=== PATIENT | female | born 1995 | race Caucasian/White ===

== ENCOUNTER 2018-01-18 10:29 | Emergency (ER) | payer OTHER ==
--- NOTE | 2018-01-18 10:34 | PDOC ---
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 No fevers or chills No neck pain No focal weakness or numbness PMH: denies PSH: denies Meds: denies ALL: NKDA Social: denies alcohol drug cigarettes GENERAL/CONSTITUTIONAL: No: fever, chills, weakness, loss of appetite. HEAD, EYES, EARS, NOSE AND THROAT: No: change in vision, ear pain, discharge, sore throat, throat swelling. CARDIOVASCULAR: No: chest pain, lightheadedness, palpitations, syncope RESPIRATORY: No: cough, shortness of breath, wheezing, hemoptysis, stridor. GASTROINTESTINAL: No: nausea, vomiting, diarrhea, abdominal pain GENITOURINARY: No: dysuria, hematuria, frequency, urgency, flank pain. MUSCULOSKELETAL: No: back pain, neck pain, joint pain, muscle swelling or pain SKIN AND BREASTS: No: lesions, pallor, rash or easy bruising. NEUROLOGIC: Yes:headache No: vertigo, paresthesias, weakness ENDOCRINE: No: unexplained weight gain or loss HEMATOLOGIC/LYMPHATIC: No: anemia, easy bleeding, swelling nodes. GENERAL: The patient is in no acute distress. HEAD: Normal with no signs of trauma. EYES: PERRLA, EOMI, pupils 4mms to 2 mm, no periobital bruising, no bruising over the mastoid ENT: Ears normal, nares patent, oropharynx clear without exudates. Moist mucous membranes. No hemotympanum NECK: Normal range of motion, supple without lymphadenopathy, JVD, or masses. LUNGS: Breath sounds equal, clear to auscultation bilaterally. No wheezes, and no crackles. HEART:Regular rate and rhythm, normal S1 and S2 without murmur, rub or gallop. ABDOMEN: Soft, nontender EXTREMITIES: Normal range of motion NEUROLOGICAL: Cranial nerves II through XII grossly intact. Normal speech. No focal neurological deficits. MUSCULOSKELETAL: Back non-tender to palpation SKIN: Warm, Dry, normal turgor, no rashes or lesions noted. 01/18/18 10:53 Past History - Past Medical History Allergies/Adverse Reactions: Allergies Allergy/AdvReac Type Severity Reaction Status Date / Time No Known Allergies Allergy Unverified 01/18/18 10:32 Home Medications: Ambulatory Orders Ibuprofen [Motrin -] 600 mg PO TID PRN #21 tablet 01/18/18 Metoclopramide HCl [Reglan -] 10 mg PO BID #10 tablet 01/18/18 Medical Decision Making - Medical Decision Making 01/18/18 10:58 Aide is a 22 yo F who presents to the ER with a complaint of headache s/p head trauma Pt states she fell 3 days ago Pt took tylenol today Based on CT in Head Injury patients prediction rule - pt is <40, GCS 15, no deterioration of GCS, no skull injury, no post traumatic amnesia, not ejected from vehicle or struck by vehicle, no anticoagulants, no fall from elevation, no persistent anterograde amnesia, no neurologic deficit, ? LOC)_ CT not indicated She is not interested in doing a CT Pt is concerned because she has an important test to take tomorrow Will do Motrin, Reglan Will re assess Pain score now 05/2301/18/18 11:47 HEadache gone Pt still has head heaviness Will discharge on Reglan and MOtrin Clinical impression: post traumatic headache, initial presentation *DC/Admit/Observation/Transfer Diagnosis at time of Disposition: Headache Qualifiers: Headache type: unspecified Headache chronicity pattern: acute headache Intractability: not intractable Qualified Code(s): R51 - Headache - Discharge Dispostion Disposition: HOME Condition at time of disposition: Stable Admit: No - Prescriptions Prescriptions: Ibuprofen [Motrin -] 600 mg PO TID PRN #21 tablet PRN Reason: Pain Metoclopramide HCl [Reglan -] 10 mg PO BID #10 tablet - Referrals Referrals: Isauro Villarreal MD [Staff Physician] - - Patient Instructions Printed Discharge Instructions: DI for Concussion, DI for Post-traumatic Headache Additional Instructions: Ms Saez Chief coming to the emergency Department today. Please take medications as prescribed. Please return to the emergency department for any other concerns or complaints - Post Discharge Activity
[2018-01-18 10:47] VITALS: BP 121/85; PULSE 67; TEMP 98.2; BMI 19.9
[2018-01-18] MEDS ORDERED: IBUPROFEN 600 MG TABLET (FP) PO ONE ×2 (10:52→10:55)
[2018-01-18] MEDS ORDERED: METOCLOPRAMIDE HCL 10 MG TABLET (FP) PO ONE ×2 (10:52→10:55)
== END 2018-01-18 11:54 | disposition home or self-care (01) ==
LOC: FER 10:29
DX: R51 Headache (principal); W18.39XA Other fall on same level, initial encounter; Y93.66 Activity, soccer; Y92.9 Unspecified place or not applicable
CPT/HCPCS: 99281-25

== ENCOUNTER 2018-11-14 10:39 | Emergency (ER) | payer OTHER ==
[2018-11-14 11:01] VITALS: BP 96/50; PULSE 72; TEMP 98.2; BMI 20.2
[2018-11-14 11:15] LABS: URINE APPEARANCE Clear; URINE BILIRUBIN Negative (NEGATIVE); URINE COLOR Yellow; URINE GLUCOSE (UA) Negative (NEGATIVE); URINE KETONE Negative (NEGATIVE); URINE LEUK ESTERASE 1+ (NEGATIVE); URINE NITRITE Negative (NEGATIVE); URINE PROTEIN Negative (NEGATIVE); URINE UROBILINOGEN 0.2 (0.2-1.0)
[2018-11-14 11:34] LABS: AMORP URATES NONE SEEN /hpf (NONE SEEN); EPI CELLS 2+ /HPF; URINE BACTERIA 1+ /hpf (NEGATIVE)
--- NOTE | 2018-11-14 11:39 | PDOC ---
History of Present Illness - General Chief Complaint: Urinary Problem Stated Complaint: UTI Time Seen by Provider: 11/14/18 10:40 History Source: Patient Exam Limitations: No Limitations - History of Present Illness Initial Comments: 11/14/18 11:36 CHIEF COMPLAINT: Dysuria and burning since last night HISTORY OF PRESENT ILLNESS: 23-year-old female presents complaining of discomfort on urination since last night. She states she has one sexual partner for the last 2 years. They had sexual intercourse last night and she has some burning and vaginal discomfort at that time. She had dysuria afterwards and continues to have dysuria today. There is no urgency or frequency. The dysuria is less intense today. There is no vaginal discharge. There is no history of STI. Patient is not taking control currently. She is not using condoms. Her last normal menstrual period was the last week in September. Her usual cycle length is 6 weeks so she is due next week. REVIEW OF SYSTEMS: GENERAL/CONSTITUTIONAL: No fever or chills. No weakness. No weight change. HEAD, EYES, EARS, NOSE AND THROAT: No change in vision. No ear pain or discharge. No sore throat. CARDIOVASCULAR: No chest pain or shortness of breath. RESPIRATORY: No cough, wheezing, or hemoptysis. GASTROINTESTINAL: No nausea, vomiting, diarrhea or constipation. No rectal bleeding. GENITOURINARY: Positive dysuria. No frequency. No hematuria. No urgency. No abnormal vaginal discharge. No white or yellow discharge. MUSCULOSKELETAL: No joint or muscle swelling or pain. No neck or back pain. SKIN AND BREASTS: No rash or easy bruising. NEUROLOGIC: No headache, vertigo, loss of consciousness, or loss of sensation. PSYCHIATRIC: No depression or anxiety. ENDOCRINE: No increased thirst. No abnormal weight change. HEMATOLOGIC/LYMPHATIC: No anemia, easy bleeding, or history of blood clots. ALLERGIC/IMMUNOLOGIC: No hives or skin allergy. No latex allergy. Past History - Past Medical History Allergies/Adverse Reactions: Allergies Allergy/AdvReac Type Severity Reaction Status Date / Time No Known Allergies Allergy Verified 11/14/18 10:40 Home Medications: Ambulatory Orders Cephalexin [Keflex] 500 mg PO BID #6 capsule 11/14/18 Asthma: No COPD: No Diabetes: No - Suicide/Smoking/Psychosocial Hx Smoking History: Never smoked Have you smoked in the past 12 months: No Hx Alcohol Use: Yes (RARE) Drug/Substance Use Hx: No Substance Use Type: None *Physical Exam - Vital Signs Last Vital Signs Temp Pulse Resp BP Pulse Ox 98.2 F 72 16 96/50 L 99 11/14/18 10:39 11/14/18 10:39 11/14/18 10:39 11/14/18 10:39 11/14/18 10:39 - Physical Exam Comments: 11/14/18 11:38 GENERAL: [The patient is awake, alert, and fully oriented, in no acute distress. ] HEAD: [Normal with no signs of trauma.] EYES: [Pupils equal, round and reactive to light, extraocular movements intact, sclera anicteric, conjunctiva clear.] ENT: [Ears normal, nares patent, oropharynx clear without exudates. Moist mucous membranes.] NECK: [Normal range of motion, supple without lymphadenopathy, JVD, or masses.] LUNGS: [Breath sounds equal, clear to auscultation bilaterally. No wheezes, and no crackles.] HEART: [Regular rate and rhythm, normal S1 and S2 without murmur, rub or gallop. ] ABDOMEN: [Soft, nontender, normoactive bowel sounds. No suprapubic masses or tenderness. No guarding, no rebound. No masses.] BACK: No CVA tenderness. EXTREMITIES: [Normal range of motion, no edema. No clubbing or cyanosis. No cords, erythema, or tenderness.] NEUROLOGICAL: [Cranial nerves II through XII grossly intact. Normal speech, normal gait.] PSYCH: [Normal mood, normal affect.] SKIN: [Warm, Dry, normal turgor, no rashes or lesions noted.] Moderate Sedation - Procedure Monitoring Vital Signs: Procedure Monitoring Vital Signs Temperature 98.2 F 11/14/18 10:39 Pulse Rate 72 11/14/18 10:39 Respiratory Rate 16 11/14/18 10:39 Blood Pressure 96/50 L 11/14/18 10:39 O2 Sat by Pulse Oximetry (%) 99 11/14/18 10:39 ED Treatment Course - ADDITIONAL ORDERS Additional order review: Laboratory Results 11/14/18 10:40 Urine Color Yellow Urine Appearance Clear Urine pH 6.0 Ur Specific [place] >= 1.030 Urine Protein Negative Urine Glucose (UA) Negative Urine Ketones Negative Urine Blood Trace-intact H Urine Nitrite Negative Urine Bilirubin Negative Urine Urobilinogen 0.2 Ur Leukocyte Esterase 1+ H Urine RBC 2-5 Urine WBC 2-5 Ur Epithelial Cells 2+ Amorphous Urates None seen Urine Bacteria 1+ Medical Decision Making - Medical Decision Making 11/14/18 11:58 23-year-old, young healthy female presents complaining of dysuria after sexual relations. Her symptoms are highly suggestive of UTI. She has no symptoms to suggest vaginitis. She is monogamous for a long period of time with one partner and no history of STI's. Urinalysis is suggestive of a mild urinary tract infection. No signs of pyelonephritis. Patient will be treated with Keflex 500 mg twice a day for 3 days. Urine culture was sent and pending. Urine for GC and chlamydia was also sent and is pending. Patient advised to follow-up with her primary care physician or oyster buyer. She will be notified through our follow-up system if her STI screen is positive. *DC/Admit/Observation/Transfer Diagnosis at time of Disposition: Cystitis - Discharge Dispostion Disposition: HOME Condition at time of disposition: Good Decision to Admit order: No - Prescriptions Prescriptions: Cephalexin [Keflex] 500 mg PO BID #6 capsule - Referrals Schedule a call back: STI urine screen - Patient Instructions Printed Discharge Instructions: DI for Urinary Tract Infection (UTI) Additional Instructions: Today you were evaluated for burning on urination. The urine testing shows that you are not . The urine testing further shows that you have a urinary tract infection, uncomplicated. You're advised to drink plenty of fluids to help resolve the infection. Take Keflex antibiotic 500 mg 2 times a day for 3 days. Your STI screening test is pending at the time of discharge. You will be contacted if the test comes back positive. Follow-up with your primary care physician or your oyster buyer. Return to the emergency department for any severe or progressive symptoms. - Post Discharge Activity
[2018-11-14] MEDS ORDERED: CEPHALEXIN MONOHYDRATE 500 MG CAPSULE (UD) PO ONE (11:52)
[2018-11-14] MEDS ORDERED: CEPHALEXIN MONOHYDRATE 500 MG CAPSULE (UD) ONE (11:54)
== END 2018-11-14 12:05 | disposition home or self-care (01) ==
LOC: FER 10:39
DX: N30.90 Cystitis, unspecified without hematuria (principal)
CPT/HCPCS: 36415; 81003; 81015; 84703; 87086; 87491; 87591; 99282-25

== ENCOUNTER 2022-01-06 01:32 | Inpatient (IN) | payer OTHER ==
[~2022-01-06 01:32] MED LIST: ELECTROLYTE-148 SOLN 500 ML IV SCH
[2022-01-06] MEDS ORDERED: LABETALOL HCL 200 MG TABLET (FP) PO ONE ×2 (02:40→20:00)
[2022-01-06] MEDS ORDERED: BUTORPHANOL TARTRATE 2 MG/ML VIAL IVPB ONE (02:40)
[2022-01-06] MEDS ORDERED: PROMETHAZINE HCL 25 MG/1 ML VIAL IVPB ONE (02:40)
[2022-01-06] MEDS ORDERED: LABETALOL HCL 200 MG TABLET (FP) ONE ×2 (02:43→19:47)
[2022-01-06 03:06] LABS: BASO % 0.3 % (0-2.0); EOS % 0.6 % (0-4.5); HEMATOCRIT 32.9 % (32.4-45.2); HEMOGLOBIN 11.4 GM/dL (10.7-15.3); LYMPH % 24.9 % (8-40); MCH 32.1 pg (25.7-33.7); MCHC 34.6 g/dl (32.0-36.0); MEAN PLT VOLUME 10.8 fl (7.5-11.1); MONO % 7.7 % (3.8-10.2); NEUT % 66.5 % (42.8-82.8); PLATELET COUNT 187 10^3/uL (134-434); RBC 3.54 M/mm3 (3.60-5.2); RDW 13.4 % (11.6-15.6); WHITE BLOOD COUNT 7.4 K/mm3 (4.0-10.0)
[2022-01-06] MEDS ORDERED: PROMETHAZINE HCL 25 MG/1 ML VIAL ONE (03:10)
[2022-01-06] MEDS ORDERED: BUTORPHANOL TARTRATE 2 MG/ML VIAL ONE (03:10)
[2022-01-06 03:15] LABS: INR 0.84 (0.83-1.09); PROTHROMBIN TIME (PATIENT) 9.7 SEC (9.7-13.0)
[2022-01-06 03:18] LABS: ACTIVATED PTT 27.1 SECONDS (25.2-36.5)
[2022-01-06 03:26] LABS: CALCIUM 8.7 mg/dL (8.5-10.1)
[2022-01-06] MEDS ORDERED: ELECTROLYTE-148 SOLN 500 ML IV SCH (03:26)
[2022-01-06 03:27] LABS: BLOOD UREA NITROGEN 13.3 mg/dL (7-18)
[2022-01-06 03:30] LABS: CREATININE 0.6 mg/dL (0.55-1.3)
[2022-01-06 04:28] VITALS: BMI 27.5
[2022-01-06] MEDS ORDERED: BUTORPHANOL TARTRATE 1 MG/ML VIAL IVPB PRN (06:20)
[2022-01-06] MEDS ORDERED: PROMETHAZINE HCL 25 MG/1 ML VIAL IVPUSH ONE (06:20)
[2022-01-06] MEDS: ELECTROLYTE-148 SOLN 1,000 ML IV SCH (06:30)
[2022-01-06] MEDS ORDERED: FENTANYL/BUPIVACAINE/NS/PF - PCEA - 50 ML DISP.SYRIN EP ONE ×5 (07:20→22:20)
[2022-01-06] MEDS ORDERED: NALOXONE HCL 0.4 MG/ML VIAL IVPUSH PRN (07:22)
[2022-01-06] MEDS ORDERED: BUPIVACAINE HCL/PF 0.25% (2.5MG/ML) 10 ML VIAL ONE ×4 (07:23→23:34)
[2022-01-06] MEDS: FENTANYL/BUPIVACAINE/NS/PF - PCEA - 50 ML DISP.SYRIN EP SCH ×3 (07:40→16:00)
[2022-01-06 07:41] LABS: POC NITRAZINE POS
[2022-01-06] MEDS: OXYTOCIN 30 UNITS in 0.9% NS 30 UNIT/500 ML INFUS.BAG IVPB SCH (08:45)
[2022-01-06] MEDS ORDERED: OXYTOCIN 30 UNITS in 0.9% NS 30 UNIT/500 ML INFUS.BAG IVPB ONE (08:45)
[2022-01-06] MEDS ORDERED: NIFEdipine 10 MG CAPSULE (FP) PO ONE (21:10)
[2022-01-06] MEDS ORDERED: MAGNESIUM 4GM/H20 - 100 ML IVPB SCH (21:15)
[2022-01-06] MEDS ORDERED: MAGNESIUM SULFATE 20GM/500ML - 500 ML IVPB SCH (21:15)
[2022-01-06 21:50] LABS: RETICULOCYTES 2.42 % (0.5-1.5)
[2022-01-07] MEDS ORDERED: FENTANYL/BUPIVACAINE/NS/PF - PCEA - 50 ML DISP.SYRIN EP ONE ×2 (00:47→03:42)
[2022-01-07] MEDS ORDERED: BUPIVACAINE HCL/PF 0.25% (2.5MG/ML) 10 ML VIAL ONE (01:16)
[2022-01-07] MEDS ORDERED: AMPICILLIN - 2 GM in SODIUM CHLORIDE 100 ML IVPB ONE (03:00)
[2022-01-07] MEDS ORDERED: AMPICILLIN SODIUM 2 GM VIAL ONE (03:04)
[2022-01-07] MEDS ORDERED: ONDANSETRON 4 MG/2 ML VIAL IVPUSH PRN (05:28)
[2022-01-07] MEDS ORDERED: WITCH HAZEL 50% (TUCKS) 40 PAD/JAR PAD TP PRN (05:34)
[2022-01-07] MEDS ORDERED: BENZOCAINE 20% 57 GM BOTTLE TP PRN (05:34)
[2022-01-07] MEDS ORDERED: BENZOCAINE 28 GM HEMORRHOIDAL OINTMENT TP PRN (05:34)
[2022-01-07] MEDS ORDERED: METHYLERGONOVINE MALEATE 0.2 MG/1 ML AMP IM PRN (05:34)
[2022-01-07 07:04] LABS: CORD BASE EXCESS -3.3 mmol/L (0-2); CORD HCO3 22.7 mmHg (20-29); CORD PCO2 44.6 mmHg (30-78); CORD pH 7.325 (7.14-7.44)
[2022-01-07 07:07] LABS: CORD BASE EXCESS -6.7 mmol/L (0-2); CORD HCO3 18.5 mmHg (20-29); CORD PCO2 35.9 mmHg (30-78); CORD pH 7.329 (7.14-7.44)
[2022-01-07] MEDS ORDERED: IBUPROFEN 800 MG/8 ML IJ IVPB ONE (07:29)
[2022-01-07] MEDS: OXYTOCIN 20 UNITS in 0.9% NS 20 UNIT/1,000 ML INFUS.BAG IV SCH ×2 (07:30→23:07)
[2022-01-07] MEDS ORDERED: OXYTOCIN 20 UNITS in 0.9% NS 20 UNIT/1,000 ML INFUS.BAG IV ONE (07:33)
[2022-01-07] MEDS: IBUPROFEN 800 MG/8 ML IJ IVPB PRN ×3 (07:40→23:07)
[2022-01-07] MEDS: AMPICILLIN - 1 GM in SODIUM CHLORIDE 100 ML IVPB SCH ×2 (08:08→19:32)
[2022-01-07] MEDS: OXYTOCIN 30 UNITS in 0.9% NS 30 UNIT/500 ML INFUS.BAG IVPB SCH (08:08)
[2022-01-07] MEDS: ELECTROLYTE-148 SOLN 1,000 ML IV SCH (08:08)
[2022-01-07] MEDS: FENTANYL/BUPIVACAINE/NS/PF - PCEA - 50 ML DISP.SYRIN EP SCH (08:09)
[2022-01-07] MEDS: PRENATAL VITAMINS W/ FOLIC ACID TABLET (FP) PO SCH (09:54)
[2022-01-07] MEDS: FERROUS SO4 325 MG TABLET (FP) PO SCH ×2 (09:54→23:07)
[2022-01-07] MEDS: SIMETHICONE 80 MG TAB.CHEW (FP) PO PRN (23:07)
[2022-01-08] MEDS ORDERED: BISACODYL 10 MG SUPP.RECT RC PRN (05:34)
[2022-01-08] MEDS: ACETAMINOPHEN 325 MG TABLET (FP) PO PRN (05:46)
[2022-01-08] MEDS: SIMETHICONE 80 MG TAB.CHEW (FP) PO PRN ×3 (05:46→20:04)
[2022-01-08] MEDS: OXYTOCIN 20 UNITS in 0.9% NS 20 UNIT/1,000 ML INFUS.BAG IV SCH (05:47)
[2022-01-08 09:31] LABS: BASO % 0.2 % (0-2.0); EOS % 0.7 % (0-4.5); HEMATOCRIT 25.7 % (32.4-45.2); HEMOGLOBIN 8.8 GM/dL (10.7-15.3); LYMPH % 17.1 % (8-40); MCH 32.6 pg (25.7-33.7); MCHC 34.5 g/dl (32.0-36.0); MEAN CELL VOLUME 94.4 fl (80-96); MEAN PLT VOLUME 10.1 fl (7.5-11.1); MONO % 7.2 % (3.8-10.2); NEUT % 74.8 % (42.8-82.8); PLATELET COUNT 139 10^3/uL (134-434); RBC 2.72 M/mm3 (3.60-5.2); RDW 14.3 % (11.6-15.6)
[2022-01-08] MEDS ORDERED: DIPHTH,PERTUSS(ACELL),TET 0.5 ML DISP.SYRIN IM ONE (10:00)
[2022-01-08] MEDS: FERROUS SO4 325 MG TABLET (FP) PO SCH ×2 (10:33→21:12)
[2022-01-08] MEDS: IBUPROFEN 600 MG TABLET (FP) PO PRN ×2 (10:33→20:03)
[2022-01-08] MEDS: PRENATAL VITAMINS W/ FOLIC ACID TABLET (FP) PO SCH (10:33)
[2022-01-08] MEDS: SENNOSIDES/DOCUSATE COMBO (SENNA PLUS) TABLET (UD) PO PRN (20:04)
[2022-01-08] MEDS: oxyCODONE HCL 5 MG TABLET PO PRN (21:12)
[2022-01-09] MEDS: SIMETHICONE 80 MG TAB.CHEW (FP) PO PRN ×4 (03:24→22:47)
[2022-01-09] MEDS: oxyCODONE HCL 5 MG TABLET PO PRN (03:25)
[2022-01-09] MEDS: IBUPROFEN 600 MG TABLET (FP) PO PRN ×3 (07:17→22:47)
[2022-01-09] MEDS ORDERED: oxyCODONE HCL 5 MG TABLET PO PRN (08:00)
[2022-01-09 08:01] LABS: BASO % 0.3 % (0-2.0); EOS % 0.6 % (0-4.5); HEMATOCRIT 28.4 % (32.4-45.2); HEMOGLOBIN 9.8 GM/dL (10.7-15.3); LYMPH % 22.7 % (8-40); MCH 32.1 pg (25.7-33.7); MCHC 34.5 g/dl (32.0-36.0); MEAN PLT VOLUME 9.6 fl (7.5-11.1); MONO % 6.5 % (3.8-10.2); NEUT % 69.9 % (42.8-82.8); PLATELET COUNT 184 10^3/uL (134-434); RBC 3.06 M/mm3 (3.60-5.2); RDW 13.9 % (11.6-15.6); WHITE BLOOD COUNT 7.9 K/mm3 (4.0-10.0)
[2022-01-09 08:36] LABS: ALBUMIN 2.1 g/dl (3.4-5.0); BILIRUBIN,TOTAL 0.4 mg/dL (0.2-1); CALCIUM 8.7 mg/dL (8.5-10.1); CREATININE 0.7 mg/dL (0.55-1.3); TOT PROT 5.5 g/dl (6.4-8.2)
[2022-01-09] MEDS: FERROUS SO4 325 MG TABLET (FP) PO SCH ×2 (09:49→22:47)
[2022-01-09] MEDS: PRENATAL VITAMINS W/ FOLIC ACID TABLET (FP) PO SCH (09:49)
[2022-01-09] MEDS: SENNOSIDES/DOCUSATE COMBO (SENNA PLUS) TABLET (UD) PO PRN (22:47)
[2022-01-10] MEDS: IBUPROFEN 600 MG TABLET (FP) PO PRN (07:41)
[2022-01-10] MEDS: SIMETHICONE 80 MG TAB.CHEW (FP) PO PRN ×2 (07:41→19:38)
[2022-01-10 08:04] LABS: BASO % 0.4 % (0-2.0); HEMATOCRIT 29.7 % (32.4-45.2); HEMOGLOBIN 10.1 GM/dL (10.7-15.3); LYMPH % 21.7 % (8-40); MEAN CELL VOLUME 93.9 fl (80-96); MEAN PLT VOLUME 9.4 fl (7.5-11.1); MONO % 7.9 % (3.8-10.2); PLATELET COUNT 235 10^3/uL (134-434); RBC 3.16 M/mm3 (3.60-5.2); RDW 13.7 % (11.6-15.6); WHITE BLOOD COUNT 6.1 K/mm3 (4.0-10.0)
[2022-01-10] MEDS: PRENATAL VITAMINS W/ FOLIC ACID TABLET (FP) PO SCH (11:26)
[2022-01-10] MEDS: ACETAMINOPHEN 325 MG TABLET (FP) PO PRN ×2 (11:26→22:06)
[2022-01-10] MEDS: NIFEdipine E.R. 30 MG TABLET PO SCH (11:27)
[2022-01-10] MEDS: FERROUS SO4 325 MG TABLET (FP) PO SCH ×2 (11:27→22:06)
[2022-01-10] MEDS: oxyCODONE HCL 5 MG TABLET PO PRN (19:38)
[2022-01-11] MEDS: ACETAMINOPHEN 325 MG TABLET (FP) PO PRN ×2 (08:03→23:05)
[2022-01-11] MEDS: NIFEdipine E.R. 30 MG TABLET PO SCH (09:34)
[2022-01-11] MEDS: PRENATAL VITAMINS W/ FOLIC ACID TABLET (FP) PO SCH (09:34)
[2022-01-11] MEDS: FERROUS SO4 325 MG TABLET (FP) PO SCH ×2 (09:34→23:04)
[2022-01-11] MEDS ORDERED: NIFEdipine E.R. 30 MG TABLET PO SCH (10:30)
[2022-01-11] MEDS ORDERED: NIFEdipine E.R. 30 MG TABLET PO ONE (11:00)
[2022-01-11] MEDS ORDERED: LABETALOL HCL 200 MG TABLET (FP) PO ONE (12:08)
[2022-01-11 15:38] LABS: RETICULOCYTES 2.77 % (0.5-1.5)
[2022-01-12] MEDS ORDERED: NIFEdipine E.R 60 MG TABLET PO SCH (10:00)
[2022-01-12] MEDS ORDERED: LABETALOL HCL 200 MG TABLET (FP) PO PRN (10:17)
[2022-01-12] MEDS ORDERED: NIFEdipine E.R. 30 MG TABLET PO SCH (10:19)
[2022-01-12] MEDS: FERROUS SO4 325 MG TABLET (FP) PO SCH (10:21)
[2022-01-12] MEDS: PRENATAL VITAMINS W/ FOLIC ACID TABLET (FP) PO SCH (10:21)
[2022-01-12 12:52] LABS: EPI CELLS 7 /uL (0-25.1); HYALINE CASTS 2 /uL (0-3.1); PH,URINE 5.5 (5.0-8.0); URINE APPEARANCE CLEAR; URINE BACTERIA 12 /uL (0-1359); URINE BILIRUBIN NEGATIVE (NEGATIVE); URINE COLOR YELLOW; URINE GLUCOSE (UA) NEGATIVE (NEGATIVE); URINE KETONE NEGATIVE (NEGATIVE); URINE LEUK ESTERASE NEGATIVE (NEGATIVE); URINE NITRITE NEGATIVE (NEGATIVE); URINE PROTEIN 2+ (NEGATIVE); URINE RBC 22 /uL (0-23.9); URINE UROBILINOGEN 0.2 mg/dL (0.2-1.0); URINE WBC 12 /uL (0-25.8)
[2022-01-12] MEDS ORDERED: NIFEdipine E.R. 30 MG TABLET PO ONE (13:45)
[2022-01-12 17:18] VITALS: BP 140/91; PULSE 98; TEMP 98
== END 2022-01-12 18:50 | disposition home or self-care (01) | DRG 540 ==
LOC: JLDR 01:32 → J3W 01-07 08:20
PROVIDERS: ADMIT Obstetrics & Gynecology; ATTEND Obstetrics & Gynecology
PROC: 10D00Z1 Extraction of Products of Conception, Low, Open Approach (ICD-10-PCS; principal; 2022-01-07)
DX: O62.1 Secondary uterine inertia (principal); O13.4 Gestational [pregnancy-induced] hypertension without significant proteinuria, complicating childbirth; O99.013 Anemia complicating pregnancy, third trimester; D62 Acute posthemorrhagic anemia; Z3A.39 39 weeks gestation of pregnancy; O41.93X0 Disorder of amniotic fluid and membranes, unspecified, third trimester, not applicable or unspecified; Z37.0 Single live birth
CPT/HCPCS: 36415; 36600; 80048; 80053; 81003; 82570; 82803; 82977; 83010; 83986-QW; 84156; 84450; 84460; 84550; 85025; 85032; 85045; 85610; 85730; 86780; 86850; 86900; 86901; 88307-TC; 90715; C9803; U0003; U0005